=== PATIENT | female | born 1990 | race Two or more races ===

== ENCOUNTER 2024-07-30 19:04 | Emergency (ER) | payer MEDICAID, SELFPAY ==
[2024-07-30 19:07] VITALS: BMI 35.6
[2024-07-30 19:23] VITALS: BP 146/88; PULSE 87; RESP 18; TEMP 37; O2SAT 100
--- NOTE | 2024-07-30 19:33 | XR_ITS ---
EXAMINATION: Ankle, right 3 views . Technique: Ankle AP, oblique, lateral 3 views Date and time of exam: July 30, 2024 1941 hrs. Indications: Patient slipped and fell tonight with injury to the ankle, ankle pain Findings: Acute fracture fibular tip, without significant displacement Lateral malleolar soft tissue swelling No ankle dislocation Impression: Acute nondisplaced fractures at the fibular tip
--- NOTE | 2024-07-30 19:33 | PD.EDRME ---
Rapid Medical Screening Exam RME Arrival date/time: 07/30/24 19:04 34-year-old female presents emergency department complaining of right ankle pain after ground-level fall. Chief Complaint: Ankle/Foot Injury Time Seen by Provider: 07/30/24 19:32 Vital signs: Vital Signs Temperature 98.6 F 07/30/24 19:23 Pulse Rate 87 07/30/24 19:23 Respiratory Rate 18 07/30/24 19:23 Blood Pressure 146/88 H 07/30/24 19:23 Pulse Oximetry (%) 100 07/30/24 19:23 Oxygen Delivery Method Room Air 07/30/24 19:23 Vital signs reviewed by provider: Yes
[2024-07-30] MEDS: KETOROLAC INJ 60 MG/2 ML VIAL 30 MG IM (19:43)
[2024-07-30] MEDS: HYDROcodone/APAP 5/325 TABLET 1 TAB PO (19:43)
--- NOTE | 2024-07-30 20:55 | EDNOTE_ITS ---
Lower Extremity Injury RME/HPI General Chief Complaint: Ankle/Foot Injury Stated Complaint: FELL, RIGHT ANKLE Time Seen by Provider: 07/30/24 19:32 Source: patient Arrival date/time: 07/30/24 19:04 34-year-old female presents emergency department complaining of right ankle pain after ground-level fall. With no injury to head or neck or LOC. Mode of arrival: wheelchair Limitations: physical limitation RME / HPI RME / HPI Narrative: 07/30/24 19:04 34-year-old female presents emergency department complaining of right ankle pain after ground-level fall. Related Data Home Medications ?Medication ?Instructions ?Recorded ?Confirmed Vitamin * 1 tab PO QDAY #0 tabs 02/06/17 08/09/23 Previous Rx's ?Medication ?Instructions ?Recorded acetaminophen 300 mg-codeine 30 mg 1 tab PO BID PRN pain #14 tabs 08/10/23 tablet acetaminophen 650 mg 650 mg PO Q12H #20 tabs 08/10/23 tablet,extended release ibuprofen 800 mg tablet 800 mg PO Q8H #30 tabs 08/10/23 ibuprofen 800 mg tablet 800 mg PO TID PRN fever or pain 07/30/24 #30 tabs Allergies Allergy/AdvReac Type Severity Reaction Status Date / Time egg Allergy Verified 07/30/24 19:06 lactose Allergy Verified 07/30/24 19:06 milk Allergy Verified 07/30/24 19:06 peanut Allergy Hives Verified 07/30/24 19:06 soy Allergy Verified 07/30/24 19:06 Review of Systems Review of Systems Systems Reviewed: All systems reviewed, normal except as documented Constitutional Constitutional: Reports system reviewed and no additional complaints, except as documented, Denies body ache(s), Denies chills and Denies fever(s) Eyes Eyes: Reports system reviewed and no additional complaints, except as documented and Denies change in vision ENT Ears, Nose, Mouth, and Throat: Reports system reviewed and no additional complaints, except as documented, Denies disequilibrium, Denies dizziness, Denies sore throat and Denies vertigo Cardiovascular Cardiovascular: Reports system reviewed and no additional complaints, except as documented, Denies chest pain and Denies dyspnea Respiratory Respiratory: Reports system reviewed and no additional complaints, except as documented, Denies chest congestion, Denies cough and Denies dyspnea Gastrointestinal Gastrointestinal: Reports system reviewed and no additional complaints, except as documented, Denies abdominal pain, Denies nausea and Denies vomiting Musculoskeletal Musculoskeletal: Reports system reviewed and no additional complaints, except as documented, Denies abnormal gait and Reports arthralgias Integumentary/Breasts Skin/Breast: Reports system reviewed and no additional complaints, except as documented, Denies erythema, Denies rash and Denies wounds Neurologic Neurologic: Reports system reviewed and no additional complaints, except as documented, Denies abnormal gait, Denies disequilibrium, Denies dizziness and Denies vertigo Past Medical History Past Medical History NEUROLOGIC: Negative Neurological Disorders or Seizures CARDIAC: Negative Cardiac Disorders or Congestive Heart Failure RESPIRATORY: Negative Chronic Obstructive Pulmonary Disease (COPD) GASTROINTESTINAL: Positive Gastrointestinal Disorders and Obesity; Negative Hepatitis or Colorectal Cancer GENITOURINARY: Negative Genitourinary Disorders, Renal Disease or Prostate Cancer REPRODUCTIVE: Positive Previous Pregnancies; Negative Breast Cancer or Testicular Cancer MUSCULOSKELETAL: Negative Musculoskeletal Disorders or Bone Cancer ENDOCRINE: Positive Endocrine Disorders; Negative Diabetes Mellitus Type 1 or Diabetes Mellitus Type 2 HEMATOLOGIC: Negative Blood Disorders OTHER HISTORY: Positive Hospitalization (C section); Negative Autoimmune Disease, Down Syndrome, Developmental Delay, Shingles, Falls, Blood Transfusions, Blood Transfusion Reaction, Anesthesia Reactions, Organ Transplant, Chemotherapy, Radiation Therapy, Hyperbaric Therapy, MRSA, VR SA, Human Immunodeficiency Virus (HIV), Chicken Pox, Measles, Mumps, Rubella ([place] Measles), Pertussis, Clostridium Difficile, Cancer, Breast Cancer, Cervical Cancer, Colorectal Cancer, Lung Cancer, Ovarian Cancer, Prostate Cancer or Testicular Cancer Family History FAMILY HISTORY: Positive Family Cardiac Disorders (MOTHER-HYPERTENSION) and Family Surgery (SISTE, MOTHER-CHOLESYSTECTOMY); Negative Family Psychiatric Problems, Family Respiratory Disorders, Family Gastrointestinal Problems, Family Cancer or Family Anesthesia Reaction Surgical History SURGICAL: Positive Section (C/S X3, last 2 moths ago); Negative Organ Transplant Social History SMOKING STATUS: Never smoker ED Exam General Limitations: Present physical limitation General appearance: Present alert and in no apparent distress Head Head exam: Present atraumatic Eye Eye exam: Present normal appearance, PERRL and EOMI ENT ENT exam: Present normal exam, normal oropharynx and mucous membranes moist Neck Neck exam: Present normal inspection, full ROM and trachea midline Chest Chest inspection: Present normal inspection and symmetric chest wall rise Respiratory Respiratory exam: Present normal lung sounds bilaterally Cardiovascular Cardiovascular exam: Present regular rate, normal rhythm and normal heart sounds Abdominal Exam Abdominal exam: Present soft and normal bowel sounds Extremities Exam Extremities exam: Present normal inspection and full ROM Expanded Lower Extremity Exam Ankle exam: Present swelling (+2 edema) Neurovascular/Tendon exam: Present normal capillary refill Gait: observed and limited by pain Back Exam Back exam: Present normal inspection and full ROM Neurological Exam Neurological exam: Present alert, oriented X3 and CN II-XII intact Psychiatric Psychiatric exam: Present normal affect and normal mood Skin Skin exam: Present warm, dry, intact and normal color Course Quality Measures none Orders Category Date Time Status Crutches .NOW Care 07/30/24 20:46 Completed Splint / Immobilizer STAT Care 07/30/24 20:45 Completed XR ankle comp RT min 3V Stat Exams 07/30/24 19:33 Completed HYDROcodone*/APAP 5/325 [Havana 5/325] Med 07/30/24 19:33 Discontinued 1 tab PO X1 ONE Ketorolac Inj [Toradol Inj] Med 07/30/24 19:33 Discontinued 30 mg IM X1 ONE Vital Signs Vital signs: Vital Signs Temperature 98.6 F 07/30/24 19:23 Pulse Rate 87 07/30/24 19:23 Respiratory Rate 18 07/30/24 19:23 Blood Pressure 146/88 H 07/30/24 19:23 Pulse Oximetry (%) 100 07/30/24 19:23 Oxygen Delivery Method Room Air 07/30/24 19:23 100% room air within normal limits Procedures -ED Splint Fabrication: Clinician Made Type: Other (Posterior short) Reason for Splint: Optimal Positioning, Pain Management, Minimize Deformities, Prevent Deformities and Support Joint/Muscle Site condition: Edematous Circulation Distal to Splint: Yes Movement Distal to Splint: Yes Senation Distal to Splint: Yes Tolerance: Tolerates Well Extremity Injury, Lower MDM Narrative MDM Narrative:: 34-year-old female presents emergency department complaining of right ankle pain after ground-level fall. With no injury to head or neck or LOC. X-ray finding nondisplaced distal fibular fracture. Patient placed in posterior short leg splint and tolerated well. Patient affected extremity neurovascularly intact. Patient given crutches and instructed to follow-up primary care provider request referral to intelligence research specialist upon discharge. Patient data External records reviewed:: [facility] previous records Clinical information provided by:: patient Social determinants that could affect healthcare access:: none Patient has the following chronic illnesses:: None How is presenting disease/condition affected by chronic disease/condition?: no chronic disease Evaluation data The following diagnostics were reviewed and interpreted by me:: radiology exam(s) Lab and/or radiology exams considered but not ordered:: Ordered Interpretation Summary: Interpreted by me Medications / Prescriptions Medications or Prescriptions considered but not ordered:: Ordered Medication administrations:: Medication Administration History Discontinued Medications Hydrocodone Bitart/Acetaminophen (Hydrocodone/Apap 5/325 Tablet) 1 tab PO X1 ONE Stop: 07/30/24 19:34 Last Admin: 07/30/24 19:43 Dose: 1 tab Documented By: LEIA Ketorolac Tromethamine (Ketorolac Inj 60 Mg/2 Ml Vial) 30 mg IM X1 ONE Stop: 07/30/24 19:34 Last Admin: 07/30/24 19:43 Dose: 30 mg Documented By: LEIA Given Consultations Consultation(s) initiated? (list below): No Diagnosis Extremity Injury, Lower Differential Diagnosis: ankle fracture Most likely diagnosis given after review of the tests above:: Ankle fracture Admission Indicated Admission indicated?: not indicated Admission Request Was there a request for admission?: No Disposition Plan Disposition Plan: Discharge Discharge Attestation Discharge Attestation: The patient and all family members were given an opportunity to ask questions and understood the discharge instructions. Discharge instructions specifically effects, indications for sooner follow up or return to the emergency department, and the expected course of current diagnosis. Patient condition: Stable Discharge Plan Plan Patient Disposition: HOME (Self Care) Disposition Comment: Stable Prescriptions/Referrals Prescriptions/Med Rec: New ibuprofen 800 mg tablet 800 mg PO TID PRN (Reason: fever or pain) Qty: 30 0RF No Action Vitamin * 1 EACH tablet 1 tab PO QDAY Qty: 0 ibuprofen 800 mg tablet 800 mg PO Q8H Qty: 30 0RF acetaminophen 650 mg tablet extended release 650 mg PO Q12H Qty: 20 0RF acetaminophen-codeine 300-30 mg tablet 1 tab PO BID PRN (Reason: pain) Qty: 14 0RF Problem List Clinical Impression: Ankle fracture Patient/Caregiver Discharge Instructions Discharge Activity: activity as tolerated Education Materials: How Bones Heal, ED Fracture, Lower Extremity Additional Instructions: Take pain medication as prescribed. Weightbearing as tolerated. Follow-up with primary care provider and request referral to intelligence research specialist. Return to emergency department for any worsening symptoms or as needed. Print Language: Occitan Stand Alone Forms: Abbey Award Info., Patient Portal Info Letter PA/BOX SEALING MACHINE FEEDER Supervising Physician PA/BOX SEALING MACHINE FEEDER Supervising Physician: Dr. Craft
== END 2024-07-30 21:58 | disposition home or self-care (01) ==
LOC: SERX 20:54
PROVIDERS: Emergency Provider Emergency Medicine; PCP Physician Assistant Medical
DX: S82.891A Other fracture of right lower leg, initial encounter for closed fracture (principal); W18.30XA Fall on same level, unspecified, initial encounter
CPT/HCPCS: 29515; 73610; 96372; 99283; J1885; A9270